=== PATIENT | female | born 1985 | race Caucasian/White ===

== ENCOUNTER 2016-10-07 23:41 | Emergency (ER) | payer OTHER ==
[2016-10-08 00:02] LABS: BILIRUBIN,URINE NEGATIVE (NEGATIVE)
[2016-10-08 00:04] LABS: UA CHARGE (STRIP ONLY) YES; UR CULTURE IF IND NOT INDICATED
--- NOTE | 2016-10-08 00:04 | ED Physician Documentation ---
History of Present Illness - Stated complaint Stated Complaint: BACK PX - Chief complaint Chief Complaint: Abd Pain - History obtained from History obtained from: Patient - History of Present Illness Timing: How many days ago (5) Improved by: no ameliorating factors Worsened by: no exacerbating factors Review of Systems Constitutional: denies: Fever Cardiac: reports: Reviewed and negative Respiratory: reports: Reviewed and negative GI: denies: Abdominal Pain, Nausea, Vomiting : denies: Dysuria, Frequency Skin: denies: Rash Musculoskeletal: reports: Back pain PD PAST MEDICAL HISTORY - Past Medical History Past Medical History: Yes Cardiovascular: None Respiratory: None Endocrine/Autoimmune: None GI: None : Other HEENT: None Psych: None Musculoskeletal: Other Derm: None Other Past Medical History: UTI - Past Surgical History Past Surgical History: No - Present Medications Home Medications: Ambulatory Orders Medication Instructions Recorded Confirmed No Known Home Medications [No 10/07/16 10/07/16 Known Home Medications] - Allergies Allergies/Adverse Reactions: Allergies Allergy/AdvReac Type Severity Reaction Status Date / Time [id number] Antimigraine Allergy Respiratory Verified 10/07/16 23:48 Agents - Social History Does the pt smoke?: No Smoking Status: Never smoker Does the pt drink ETOH?: No - Immunizations Immunizations are current?: Yes - POLST Patient has POLST: No PD ED PE NORMAL - Vitals Vital signs reviewed: Yes - General General: Alert and oriented X 3, No acute distress, Well developed/nourished - Cardiac Cardiac: RRR, No murmur - Respiratory Respiratory: No respiratory distress, Clear bilaterally - Abdomen Abdomen: Normal bowel sounds, Soft, Non tender, Non distended - Back Back: No CVA TTP - Derm Derm: Normal color, Warm and dry, No rash Results - Vitals Vitals: Vital Signs - 24 hr 10/07/16 10/08/16 10/08/16 23:43 01:35 03:34 Temperature 36.3 C L 36.9 C Heart Rate 82 68 98 Respiratory 16 16 16 Rate Blood Pressure 136/88 H 105/68 105/64 O2 Saturation 100 99 99 Oxygen O2 Source Room air - Labs Labs: Laboratory Tests 10/07/16 23:59 Urine Color YELLOW Urine Clarity CLEAR Urine pH 7.0 Ur Specific Pride 1.015 Urine Protein NEGATIVE Urine Glucose (UA) NEGATIVE Urine Ketones NEGATIVE Urine Occult Blood TRACE-INTA Urine Nitrite NEGATIVE Urine Bilirubin NEGATIVE Urine Urobilinogen 0.2 (NORMAL) Ur Leukocyte Esterase NEGATIVE Ur Microscopic Review NOT INDICATED Urine Culture Comments NOT INDICATED Urine HCG, Qual NEGATIVE - Rads (name of study) CT A/P Radiology: Prelim report reviewed, See rad report PD MEDICAL DECISION MAKING - ED course Complexity details: reviewed results, re-evaluated patient, considered differential, d/w patient Departure - Departure Disposition: 01 Home, Self Care Clinical Impression: Flank pain Condition: Good Instructions: ED Flank Pain Uncertain Cause Follow-Up: Fran Patterson DO [Primary Care Provider] - Within 3 Days Discharge Date/Time: 10/08/16 03:47
[2016-10-08 00:05] LABS: HCG UR QUAL NEGATIVE
[2016-10-08] MEDS ORDERED: KETOROLAC 60 MG/2 ML VIAL IM STA (00:52)
[2016-10-08] MEDS ORDERED: KETOROLAC 60 MG/2 ML VIAL ONE (00:58)
--- NOTE | 2016-10-08 01:26 | CT Preliminary Report ---
Exam: CT Abdomen/Pelvis W/O IMPRESSION: 1. No urolithiasis seen. 2. Appendix is partially seen and visualized portions appear normal. [facility] SITE ID: [id number]
--- NOTE | 2016-10-08 01:29 | CT Report ---
EXAM: CT ABDOMEN AND PELVIS (CT KUB) EXAM DATE: 10/08/2016 01:17 AM. CLINICAL HISTORY: Right flank pain. COMPARISONS: None. TECHNIQUE: Routine axial helical CT imaging was performed through the abdomen and pelvis without IV c ontrast. Reconstructions: Coronal and sagittal. In accordance with CT protocol optimization, one or more of the following dose reduction techniques w ere utilized for this exam: automated exposure control, adjustment of mA and/or KV based on patient s ize, or use of iterative reconstructive technique. FINDINGS: Lung Bases: Unremarkable. Right Kidney/Ureter: No stones, hydronephrosis, or hydroureter. No perinephric fat stranding. Left Kidney/Ureter: No stones, hydronephrosis, or hydroureter. No perinephric fat stranding. Other Abdominal Organs: Noncontrast images of the abdominal organs are grossly unremarkable. Peritoneal Cavity: Moderate stool in the colon. There may be some colonic diverticula but no divertic ulitis is seen. No bowel obstruction. No lymphadenopathy. No free air or free fluid. Appendix is part ially seen and visualized portions appear normal. Pelvic Organs: No bladder stones or wall thickening. Noncontrast images of the visualized pelvic orga ns are unremarkable. Vasculature: Unremarkable. Other: None. IMPRESSION: 1. No urolithiasis seen. 2. Appendix is partially seen and visualized portions appear normal. [facility] Referring Provider Line: [phone] SITE ID: [id number]
[2016-10-08 03:35] VITALS: BP 105/64
[2016-10-08] MEDS ORDERED: HYDROcod/ACET 5/325 Prepack 6 PO STA (03:39)
[2016-10-08] MEDS ORDERED: HYDROcod/ACET 5/325 Prepack 6 PO ONE (03:45)
== END 2016-10-08 03:47 | disposition home or self-care (01) ==
LOC: ED 23:41
DX: R10.9 Unspecified abdominal pain (principal); M54.9 Dorsalgia, unspecified
CPT/HCPCS: 74176; 81001; 81003; 81025; 87086; 96372; 99283; 99284